=== PATIENT | male | born 1995 | race African-American/Black ===

== ENCOUNTER 2016-05-06 12:52 | Emergency (ER) | payer BC, OTHER ==
[~2016-05-06] VITALS: Ht 195.6 cm; Wt 147.4 kg
[~2016-05-06 12:52] MED LIST: ALLEGRA-D 12 H1 EACH PO; AMOXICILLIN 50500 MG PO; AUGMENTIN 875875 MG PO; IBUPROFEN 600600 M1 PO
[2016-05-06 12:53] VITALS: BP 137/89
[2016-05-06] MEDS ORDERED: AMOXICILLIN500 M1 PO (13:14)
== END 2016-05-06 13:32 | disposition home or self-care (01) ==
LOC: ER 12:52
DX: J06.9 Acute upper respiratory infection, unspecified (principal); H66.91 Otitis media, unspecified, right ear